=== PATIENT | female | born 1965 | race Caucasian/White ===

== ENCOUNTER 2018-10-18 22:13 | Emergency (ER) | payer OTHER ==
[2018-10-18 22:18] VITALS: BMI 31.7
[2018-10-18] MEDS ORDERED: SYNTHROID100 MCG PO (22:20)
[2018-10-18] MEDS ORDERED: COREG25 MG PO (22:20)
[2018-10-18] MEDS ORDERED: RANEXA500 MG (22:20)
[2018-10-18] MEDS ORDERED: PLAVIX75 MG PO (22:20)
[2018-10-18] MEDS ORDERED: FUROSEMIDE20 MG PO (22:20)
[2018-10-18] MEDS ORDERED: ISOSORBIDE DINI30 MG (22:21)
[2018-10-18] MEDS ORDERED: KLONOPIN1 MG (22:21)
[2018-10-18] MEDS ORDERED: LOVASTATIN40 MG PO (22:21)
[2018-10-18] MEDS ORDERED: K-DUR20 MEQ PO (22:21)
[2018-10-18] MEDS ORDERED: LISINOPRIL10 MG PO (22:22)
[2018-10-18 22:46] LABS: BASOPHILS 0.1 % (0-2); EOSINOPHILS 2.3 % (0-7); HEMATOCRIT 40.5 % (36.0-48.0); HEMOGLOBIN 12.8 g/dL (12-16); IMMATURE GRANULOCYTES 0.3 % (0-5); LYMPHOCYTES 14.3 % (15-50); MCH 26.6 pg (26.0-34.0); MCHC 31.6 g/dL (31.0-37.0); MEAN PLATELET VOLUME 9.4 fL (7.4-10.4); MONOCYTES 7.9 % (2-11); NEUTROPHILS 75.1 % (40-80); RBC 4.82 10x6/uL (4.00-5.40); RDW 17.1 % (11.5-14.5); WBC 11.1 10x3/uL (4.8-10.8)
[2018-10-18 22:56] LABS: INR 1.19 (0.85-1.17); PROTIME 14.6 SECONDS (11.6-15.0)
[2018-10-18 23:00] LABS: ALBUMIN 3.4 g/dL (3.4-5.0); ALKALINE PHOSPHATASE 97 U/L (46-116); ALT (SGPT) 36 U/L (10-68); CALC OSMOLALITY 290 mosm/kg (275-300); CALCIUM 9.1 mg/dL (8.5-10.1); CARBON DIOXIDE 35.9 mmol/L (21.0-32.0); CHLORIDE - SERUM 103 mmol/L (98-107); CREATININE - SERUM 1.5 mg/dL (0.6-1.3); PROTEIN - SERUM 7.2 g/dL (6.4-8.2); SODIUM 141 mmol/L (136-145); UREA NITROGEN 33 mg/dL (7-18); eGFR NON AFRICAN AMERICAN 38 mL/min (90-120)
[2018-10-18 23:01] LABS: GLUCOSE 146 mg/dL (74-106); PLATELET COUNT 163 10x3/uL (130-400)
[2018-10-18 23:12] LABS: CKMB 3.1 U/L (0.0-3.6); CREATINE KINASE 48 UL (21-215); PRO BNP 7751 pg/mL (0-125); TROPONIN-I 0.025 ng/mL (0.000-0.060)
[2018-10-19] MEDS ORDERED: ALBUTEROL SULF8.5 GM INH (01:28)
[2018-10-19 01:53] VITALS: BP 140/100
== END 2018-10-19 01:53 | disposition home or self-care (01) ==
LOC: D.ER 22:13
PROVIDERS: Family Medicine
DX: I50.9 Heart failure, unspecified (principal); Z95.1 Presence of aortocoronary bypass graft